=== PATIENT | female | born 1955 | race Caucasian/White ===

== ENCOUNTER → 2016-11-13 | Outpatient (CLI) | payer OTHER ==
[~2016-11-13] MED LIST: BUPIVACAINE 0.5% 30 ML (SENSORCAINE) VIAL ONE; LIDOCAINE 1% INJ 20 ML (XYLOCAINE) VIAL ONE
--- NOTE | 2016-11-13 08:26 | Diagnostic Imaging Report ---
Bilateral screening mammogram 2D views with tomosynthesis The current study was also evaluated with a Computer Aided Detection (CAD) system. Indication: Screening. No current complaints stated on the questionnaire. COMPARISON: 11/14/15. FINDINGS: The breasts are composed of heterogeneously dense parenchyma. Benign-appearing calcifications are seen. Allowing for technique and positional differences, no suspicious change is seen. IMPRESSION: Dense breasts with no definite change. ACR BI-RADS Category 2: Benign findings. Result letter will be mailed to the patient. Note: At least 10% of breast cancer is not imaged by mammography. Dictated by: Dictated on workstation # [id number]
== END ==
LOC: RAD 07:03
PROVIDERS: ATTEND Internal Medicine
DX: Z12.31 Encounter for screening mammogram for malignant neoplasm of breast (principal)
CPT/HCPCS: 77067

== ENCOUNTER → 2017-11-08 | Outpatient (CLI) | payer OTHER ==
--- NOTE | 2017-11-08 09:22 | Diagnostic Imaging Report ---
INDICATION: Routine screening. COMPARISON: 11/13/2016 and . TECHNIQUE: 2D and 3D bilateral screening mammography was performed with CAD. FINDINGS: Both breasts are heterogeneously dense, limiting the sensitivity of mammography. The parenchymal pattern is stable. No mass or malignant appearing microcalcifications are seen. There are benign calcifications. The axillae are unremarkable. IMPRESSION: No mammographic features suspicious for malignancy are identified. ACR BI-RADS Category 2: Benign findings. Result letter will be mailed to the patient. Note: At least 10% of breast cancer is not imaged by mammography. Dictated by: Dictated on workstation # [id number]
== END ==
LOC: RAD 08:08
PROVIDERS: ATTEND Internal Medicine
DX: Z12.31 Encounter for screening mammogram for malignant neoplasm of breast (principal)
CPT/HCPCS: 77067

== ENCOUNTER 2018-01-23 13:43 | Emergency (ER) | payer OTHER ==
[~2018-01-23] VITALS: Ht 177.8 cm; Wt 72.6 kg
--- OUTSIDE RECORDS SUMMARY | 2018-01-23 13:48 | XMS REPORT | Continuity of Care Document ---
Author Author [facility] Organization [facility] Address Unknown Phone Unavailable Allergies There is no data. Medications There is no data. Problems Date Dx Coded Attending Type Code Diagnosis Diagnosed By 11/18/2009 Ot 211.4 11/18/2009 Ot 789.09 11/13/2014 Ot V76.12 11/13/2014 Ot V76.12 11/13/2014 KALYAN CAMARGO, DAV Murphy Ot V76.12 11/13/2014 KALYAN CAMARGO, DAV Murphy Ot V76.12 01/25/2015 KALYAN CAMARGO, DAV Murphy Ot V76.12 04/19/2015 Ot V76.12 04/19/2015 Ot V76.12 04/19/2015 KALYAN CAMARGO, DAV Murphy Ot V76.12 04/19/2015 DAV BIGGS MD Ot V76.12 04/19/2015 KALYAN CAMARGO, DAV Murphy Ot V76.12 04/19/2015 Ot V76.12 04/19/2015 Ot V76.12 04/19/2015 KALYAN CAMARGO, DAV Murphy Ot V76.12 04/19/2015 KALYAN CAMARGO, DAV Murphy Ot V76.12 04/19/2015 KALYAN CAMARGO, DAV Murphy Ot V76.12 08/27/2015 KALYAN CAMARGO, DAV Murphy Ot V76.12 OTH SCREEN MAMMO-MALIGN NEOPLASM OF JUJU 08/27/2015 KALYAN CAMARGO, DAV Murphy Ot V76.12 OTH SCREEN MAMMO-MALIGN NEOPLASM OF JUJU 11/14/2015 Ot V76.12 OTH SCREEN MAMMO-MALIGN NEOPLASM OF JUJU 11/14/2015 Ot V76.12 OTH SCREEN MAMMO-MALIGN NEOPLASM OF JUJU 11/14/2015 KALYAN CAMARGO, DAV Murphy Ot V76.12 OTH SCREEN MAMMO-MALIGN NEOPLASM OF JUJU 11/14/2015 DAV BIGGS MD Ot V76.12 OTH SCREEN MAMMO-MALIGN NEOPLASM OF JUJU 11/14/2015 KALYAN CAMARGO, DAV Murphy Ot V76.12 OTH SCREEN MAMMO-MALIGN NEOPLASM OF JUJU 11/14/2015 DAV BIGGS MD Ot R09.89 OTH SYMPTOMS AND SIGNS INVOLVING THE CIR 11/15/2015 WES BECERRA MD Ot Z12.31 ENCNTR SCREEN MAMMOGRAM FOR MALIGNANT NE 11/20/2015 WES BECERRA MD Ot Z12.31 ENCNTR SCREEN MAMMOGRAM FOR MALIGNANT NE 11/13/2016 Ot V76.12 OTH SCREEN MAMMO-MALIGN NEOPLASM OF JUJU 11/13/2016 DAV BIGGS MD Ot V76.12 OTH SCREEN MAMMO-MALIGN NEOPLASM OF JUJU 11/13/2016 DAV BIGGS MD Ot V76.12 OTH SCREEN MAMMO-MALIGN NEOPLASM OF JUJU 11/13/2016 DAV BIGGS MD Ot V76.12 OTH SCREEN MAMMO-MALIGN NEOPLASM OF JUJU 11/13/2016 DAV BIGGS MD Ot R09.89 OTH SYMPTOMS AND SIGNS INVOLVING THE CIR 11/13/2016 WES BECERRA MD Ot Z12.31 ENCNTR SCREEN MAMMOGRAM FOR MALIGNANT NE 12/29/2016 WES BECERRA MD Ot Z12.31 ENCNTR SCREEN MAMMOGRAM FOR MALIGNANT NE 12/29/2016 WES BECERRA MD Ot Z12.31 ENCNTR SCREEN MAMMOGRAM FOR MALIGNANT NE 11/01/2017 WES BECERRA MD Ot Z12.31 ENCNTR SCREEN MAMMOGRAM FOR MALIGNANT NE 11/02/2017 DAV BIGGS MD Ot V76.12 OTH SCREEN MAMMO-MALIGN NEOPLASM OF JUJU 11/02/2017 DAV BIGGS MD Ot V76.12 OTH SCREEN MAMMO-MALIGN NEOPLASM OF JUJU 11/02/2017 DAV BIGGS MD Ot V76.12 OTH SCREEN MAMMO-MALIGN NEOPLASM OF JUJU 11/02/2017 DAV BIGGS MD Ot R09.89 OTH SYMPTOMS AND SIGNS INVOLVING THE CIR 11/02/2017 WES BECERRA MD Ot Z12.31 ENCNTR SCREEN MAMMOGRAM FOR MALIGNANT NE 11/02/2017 WES BECERRA MD, Ot Z12.31 ENCNTR SCREEN MAMMOGRAM FOR MALIGNANT NE Procedures There is no data. Results There is no data. Encounters ACCT No. Visit Date/Time Discharge Status Pt. Type Provider Facility Loc./Unit Complaint [id number] 10/20/2017 09:44:00 10/20/2017 23:59:59 CLS Preadmit WES BECERRA MD [facility] RAD SCREENING [id number] 11/13/2016 07:03:00 11/13/2016 23:59:59 CLS Outpatient WES BECERRA MD [facility] RAD SCREENING [id number] 11/14/2015 07:14:00 11/14/2015 23:59:59 CLS Outpatient WES BECERRA MD [facility] RAD SCREENING [id number] 04/19/2015 16:05:00 04/19/2015 23:59:59 CLS Outpatient DAV BIGGS MD [facility] RAD SINUS EAR CONGESTION [id number] 11/13/2014 10:36:00 11/13/2014 23:59:59 CLS Outpatient DAV BIGGS MD [facility] RAD SCREENING [id number] 11/06/2013 10:30:00 11/06/2013 23:59:59 CLS Outpatient DAV BIGGS MD [facility] RAD SCREENING [id number] 11/14/2012 09:30:00 11/14/2012 23:59:59 CLS Outpatient DAV BIGGS MD [facility] RAD SCREENING [id number] 01/23/2018 13:44:00 ACT Emergency CHELY CHAPPELL MD [facility] ER SVT [id number] 11/12/2011 07:23:00 Document Registration [id number] 11/10/2010 07:32:00 Document Registration [id number] 11/18/2009 06:20:00 Document Registration
[2018-01-23 13:57] LABS: BASOPHILS % (AUTO) 0 % (0-10); EOSINOPHILS % (AUTO) 0 % (0-10); HEMATOCRIT 44 % (35-52); LYMPHOCYTES # (AUTO) 1.7 X 10^3 (1.0-4.0); LYMPHOCYTES % (AUTO) 22 % (12-44); MEAN CORPUSCULAR HEMOGLOBIN 32 PG (25-34); MEAN CORPUSCULAR HGB CONC 34 G/DL (32-36); MEAN CORPUSCULAR VOLUME 95 FL (80-99); MEAN PLATELET VOLUME 10.4 FL (7.4-10.4); MONOCYTES # (AUTO) 0.7 X 10^3 (0.0-1.0); MONOCYTES % (AUTO) 10 % (0-12); NEUTROPHILS # (AUTO) 5.1 X 10^3 (1.8-7.8); NEUTROPHILS % (AUTO) 68 % (42-75); PLATELET COUNT 220 10^3/uL (130-400); RED BLOOD COUNT 4.66 10^6/uL (4.35-5.85); RED CELL DISTRIBUTION WIDTH 13.1 % (10.0-14.5); WHITE BLOOD COUNT 7.6 10^3/uL (4.3-11.0)
--- NOTE | 2018-01-23 13:58 | ED Cardiac General ---
History of Present Illness General Stated Complaint: SVT Source: patient, EMS, spouse Exam Limitations: no limitations History of Present Illness Date Seen by Provider: Jan 23, 2018 Time Seen by Provider: 13:44 Initial Comments Patient presents to ER by EMS with chief complaint feeling funny and some palpitations in her left neck. She had no nausea sweats chills fever cough chest pain or shortness of breath. EMS arrived and found her to be in SVT with a rate of 169 on 12-lead. They had her blow out on a syringe and using a vagal maneuvers she converted spontaneously. She has a history of hypertension but no other cardiac history. She does not smoke. She has no primary family history of coronary disease. She's been sick the last couple days with some diarrheal viral disease and she was getting a laundry out of the basement taking it upstairs going away when she started to feel this way. It started at 1305 and EMS was able to interrupt the SVT at approximately 1345. Allergies and Home Medications Allergies Coded Allergies: No Known Drug Allergies (Unverified , 01/23/18) Patient Home Medication List Home Medication List Reviewed: Yes Review of Systems Review of Systems Constitutional: No chills, No diaphoresis EENTM: No Blurred Vision, No Double Vision Respiratory: Denies Cough, Denies Shortness of Air Cardiovascular: Denies Chest Pain, Denies Edema, Denies Irregular Heart Rate, Denies Lightheadedness; Palpitations; Denies Syncope Gastrointestinal: Denies Abdomen Distended, Denies Abdominal Pain, Denies Blood Streaked Stools Genitourinary: Denies Burning, Denies Discharge Musculoskeletal: No back pain, No joint pain Skin: No pruritus, No rash Psychiatric/Neurological: Denies Headache, Denies Numbness Past Lecdldq-Fclzsw-Nfjoew Hx Patient Social History Alcohol Use: Rarely Uses Recreational Drug Use: No Smoking Status: Never a Smoker Recent Foreign Travel: No Contact w/Someone Who Travel: No Physical Exam Vital Signs Vital Signs - First Documented 01/23/18 13:43 Temp 98.0 Pulse 84 Resp 16 B/P (MAP) 125/81 (96) Pulse Ox 96 O2 Delivery Room Air Capillary Refill : Height, Weight, BMI Height: '" Weight: lbs. oz. kg; BMI Method: General Appearance: No Apparent Distress, WD/WN HEENT: PERRL/EOMI, Normal ENT Inspection, Pharynx Normal, Moist Mucous Membranes Neck: Full Range of Motion, Normal Inspection, Non Tender, Supple Respiratory: Chest Non Tender, Lungs Clear, Normal Breath Sounds, No Accessory Muscle Use, No Respiratory Distress Cardiovascular: Regular Rate, Rhythm, No Edema, No Murmur, Normal Peripheral Pulses Gastrointestinal: Normal Bowel Sounds, Non Tender, Soft Extremity: Normal Capillary Refill, Normal Inspection, No Pedal Edema Neurologic/Psychiatric: Alert, Oriented x3, No Motor/Sensory Deficits Skin: Normal Color, Warm/Dry Progress/Results/Core Measures Results/Orders Lab Results Laboratory Tests Test 01/23/18 13:45 Range/Units White Blood Count 7.6 4.3-11.0 10^3/uL Red Blood Count 4.66 4.35-5.85 10^6/uL Hemoglobin 15.0 11.5-16.0 G/DL Hematocrit 44 35-52 % Mean Corpuscular Volume 95 80-99 FL Mean Corpuscular Hemoglobin 32 25-34 PG Mean Corpuscular Hemoglobin Concent 34 32-36 G/DL Red Cell Distribution Width 13.1 10.0-14.5 % Platelet Count 220 130-400 10^3/uL Mean Platelet Volume 10.4 7.4-10.4 FL Neutrophils (%) (Auto) 68 42-75 % Lymphocytes (%) (Auto) 22 12-44 % Monocytes (%) (Auto) 10 0-12 % Eosinophils (%) (Auto) 0 0-10 % Basophils (%) (Auto) 0 0-10 % Neutrophils # (Auto) 5.1 1.8-7.8 X 10^3 Lymphocytes # (Auto) 1.7 1.0-4.0 X 10^3 Monocytes # (Auto) 0.7 0.0-1.0 X 10^3 Eosinophils # (Auto) 0.0 0.0-0.3 10^3/uL Basophils # (Auto) 0.0 0.0-0.1 10^3/uL Sodium Level 138 135-145 MMOL/L Potassium Level 3.7 3.6-5.0 MMOL/L Chloride Level 104 98-107 MMOL/L Carbon Dioxide Level 20 L 21-32 MMOL/L Anion Gap 14 5-14 MMOL/L Blood Urea Nitrogen 9 7-18 MG/DL Creatinine 0.84 0.60-1.30 MG/DL Estimat Glomerular Filtration Rate > 60 BUN/Creatinine Ratio 11 Glucose Level 160 H 70-105 MG/DL Calcium Level 9.2 8.5-10.1 MG/DL Corrected Calcium 9.0 8.5-10.1 MG/DL Magnesium Level 1.9 1.8-2.4 MG/DL Total Bilirubin 1.2 H 0.1-1.0 MG/DL Aspartate Amino Transf (AST/SGOT) 21 5-34 U/L Alanine Aminotransferase (ALT/SGPT) 15 0-55 U/L Alkaline Phosphatase 63 40-136 U/L Troponin I < 0.30 <0.30 NG/ML Total Protein 7.3 6.4-8.2 GM/DL Albumin 4.2 3.2-4.5 GM/DL Thyroid Stimulating Hormone (TSH) 1.01 0.35-4.94 UIU/ML My Orders Orders - CHELY CHAPPELL Troponin I (01/23/18 13:51) Chest 1 View, Ap/Pa Only (01/23/18 13:51) Ekg Tracing (01/23/18 13:51) Saline Lock/Iv-Start (01/23/18 13:51) Monitor-Rhythm Ecg Trace Only (01/23/18 13:51) Cbc With Automated Diff (01/23/18 13:51) Comprehensive Metabolic Panel (01/23/18 13:51) Magnesium (01/23/18 13:51) Thyroid Stimulating Hormone (01/23/18 13:51) Vital Signs/I&O 01/23/18 13:43 Temp 98.0 Pulse 84 Resp 16 B/P (MAP) 125/81 (96) Pulse Ox 96 O2 Delivery Room Air Progress Progress Note : Time: 13:56 Progress Note EKG shows no acute changes and a normal sinus rhythm right now. Put her on the monitor to some basic labs to include a troponin. Will make consultation with cardiology. Initial ECG Impression Date: Jan 23, 2018 Initial ECG Impression Time: 13:45 Initial ECG Rate: 82 Initial ECG Rhythm: Normal Sinus Initial ECG Intervals: Normal Initial ECG Impression: Normal Initial ECG Comparisson: No Previous ECG Available Comment No ST elevation or depression. 12-lead strip from EMS was reviewed showing a rate of 169 and SVT. Diagnostic Imaging Diagonstic Imaging: Xray Plain Films/CT/US/NM/MRI: chest (1v) Comments [facility]IA [facility]. [place], [place] NAME: CANDELARIA WADE [facility] REC#: [id number] PT STATUS: REG ER : 1955 PHYSICIAN: CHELY CHAPPELL MD ADMIT DATE: 01/23/18/ER Draft Date of Exam:01/23/18 CHEST 1 VIEW, AP/PA ONLY Indication: Palpitations COMPARISON: None available. Technique: Single frontal radiograph of the chest dated 01/23/2018. Findings: The cardiac silhouette is within normal limits in size. No significant pulmonary vascular congestion. The lungs are clear. No pleural effusion. No pneumothorax. No acute osseous abnormality. Impression: No acute cardiopulmonary abnormality. Dictated on workstation # [id number] Dict: 01/23/18 1425 Trans: 01/23/18 1428 [facility] [id number] Interpreted by: JEWEL MONAE MD Electronically signed by: Reviewed: Reviewed by Me Consults : Consulting Physician: Bib ANTON MD Consults Notes Discussed case lab imaging EKG with Dr. Anton and he says that if she is already converted spontaneously and we have a copy of the strip and looks like a true narrow complex SVT we could fax it over to his clinic and let her go home and follow-up tomorrow. Departure Impression Primary Impression: SVT (supraventricular tachycardia) Disposition: 01 HOME, SELF-CARE Condition: Stable Departure-Patient Inst. Decision time for Depature: 15:09 Referrals: WES BECERRA MD (PCP/Family) Primary Care Physician Bib ANTON MD Patient Instructions: Paroxysmal Supraventricular Tachycardia (DC) Add. Discharge Instructions: Tomorrow morning please call Dr. Anton at his clinic listed above. Make an appointment to be seen this week. If she had another episode of palpitations lightheadedness or near passing out you should call for help and attempt some of the vasovagal maneuvers you were taught by EMS. Copy Copies To 1: WES BECERRA MD; Bib ANTON MD, TITUS J Jan 23, 2018 13:58
[2018-01-23] MEDS ORDERED: VASOTEC (14:12)
[2018-01-23 14:14] LABS: ALANINE AMINOTRANSFERASE 15 U/L (0-55); ALBUMIN 4.2 GM/DL (3.2-4.5); ALKALINE PHOSPHATASE 63 U/L (40-136); BILIRUBIN,TOTAL 1.2 MG/DL (0.1-1.0); BUN/CREATININE RATIO 11; CALCIUM 9.2 MG/DL (8.5-10.1); CARBON DIOXIDE 20 MMOL/L (21-32); CHLORIDE 104 MMOL/L (98-107); CREATININE SERUM 0.84 MG/DL (0.60-1.30); GFR ESTIMATED > 60; GLUCOSE 160 MG/DL (70-105); MAGNESIUM 1.9 MG/DL (1.8-2.4); POTASSIUM 3.7 MMOL/L (3.6-5.0); SODIUM 138 MMOL/L (135-145); TOTAL PROTEIN 7.3 GM/DL (6.4-8.2)
--- NOTE | 2018-01-23 14:28 | Diagnostic Imaging Report ---
Indication: Palpitations COMPARISON: None available. Technique: Single frontal radiograph of the chest dated 01/23/2018. Findings: The cardiac silhouette is within normal limits in size. No significant pulmonary vascular congestion. The lungs are clear. No pleural effusion. No pneumothorax. No acute osseous abnormality. Impression: No acute cardiopulmonary abnormality. Dictated by: Dictated on workstation # [id number]
[2018-01-23 15:19] VITALS: BP 126/79
== END 2018-01-23 15:19 | disposition home or self-care (01) ==
LOC: EDUNIT# 13:43 → ER 13:44
DX: I47.1 Supraventricular tachycardia (principal); I10 Essential (primary) hypertension
CPT/HCPCS: 36415; 71045; 80053; 83735; 84443; 84484; 85025; 93041

== ENCOUNTER → 2018-03-03 | Outpatient (CLI) | payer OTHER ==
[~2018-03-03] MED LIST changes: -BUPIVACAINE 0.5% 30 ML (SENSORCAINE) VIAL ONE; -LIDOCAINE 1% INJ 20 ML (XYLOCAINE) VIAL ONE; +VASOTEC
== END ==
LOC: CARD 13:59
PROVIDERS: ATTEND Internal Medicine Interventional Cardiology
DX: I11.9 Hypertensive heart disease without heart failure (principal); I47.1 Supraventricular tachycardia; I34.0 Nonrheumatic mitral (valve) insufficiency
CPT/HCPCS: 93306

== ENCOUNTER → 2018-11-10 | Outpatient (CLI) | payer OTHER ==
--- NOTE | 2018-11-10 18:56 | Diagnostic Imaging Report ---
INDICATION: Routine screening. COMPARISON: Comparison is made with prior mammogram from 11/08/2017 and 11/13/2016. 2-D and 3-D bilateral screening mammography was performed. The current study was also evaluated with a Computer Aided Detection (CAD) system. 3-D tomosynthesis was also performed and reviewed. FINDINGS: Scattered fibroglandular densities are identified bilaterally. The parenchymal pattern is stable. No mass or malignant-appearing microcalcifications are seen. The axillae are unremarkable. IMPRESSION: No mammographic features suspicious for malignancy are identified. ACR BI-RADS Category 1: Negative. Result letter will be mailed to the patient. Note: At least 10% of breast cancer is not imaged by mammography. Dictated by: Dictated on workstation # [id number]
== END ==
LOC: RAD 07:19
PROVIDERS: ATTEND Internal Medicine
DX: Z12.31 Encounter for screening mammogram for malignant neoplasm of breast (principal)
CPT/HCPCS: 77067

== ENCOUNTER → 2019-11-21 | Outpatient (CLI) | payer OTHER ==
--- NOTE | 2019-11-21 12:57 | Diagnostic Imaging Report ---
INDICATION: Routine screening. COMPARISON: 11/10/2018 and 11/08/2017. TECHNIQUE: 2D and 3D bilateral screening mammography was performed with CAD. FINDINGS: Scattered fibroglandular densities are identified bilaterally. The parenchymal pattern is stable. No mass or malignant appearing microcalcifications are seen. There are benign calcifications. The axillae are unremarkable. IMPRESSION: No mammographic features suspicious for malignancy are identified. ACR BI-RADS Category 2: Benign findings. Result letter will be mailed to the patient. Note: At least 10% of breast cancer is not imaged by mammography. Dictated by: Dictated on workstation # [id number]
== END ==
LOC: RAD 08:12
PROVIDERS: ATTEND Internal Medicine
DX: Z12.31 Encounter for screening mammogram for malignant neoplasm of breast (principal)
CPT/HCPCS: 77063; 77067

== ENCOUNTER 2020-10-10 06:36 | Outpatient (CLI) | payer OTHER ==
[~2020-10-10] VITALS: Ht 177.8 cm; Wt 77.2 kg
[2020-10-10] MEDS ORDERED: ESTR10TA9 PO (11:50)
[2020-10-10] MEDS ORDERED: ENAL20TA16 PO (11:50)
[2020-10-10] MEDS ORDERED: MULT-1136 PO (11:50)
== END 2020-10-10 12:30 | disposition home or self-care (01) ==
LOC: PREOP 06:36
PROVIDERS: ATTEND Internal Medicine
DX: Z01.818 Encounter for other preprocedural examination (principal)

== ENCOUNTER 2020-10-18 08:00 | Day surgery (SDC) | payer OTHER ==
--- NOTE | 2020-10-10 06:19 | HISTORY AND PHYSICAL ---
DATE OF SERVICE: HISTORY OF PRESENT ILLNESS: The patient is a 65 year-old white female seen in the office for followup of hypertension. It had been a little over 11 years since her last colonoscopy that was unremarkable, so she is being set up for surveillance colonoscopy. She reports that she has been feeling well. Voiced no complaints. No difficulty with antihypertensive medication. She has no known history for vascular disease. She denies bowel habit change, melena or bright red blood per rectum with no significant change in weight. There is no known family history for colon cancer. PHYSICAL EXAMINATION: GENERAL: Reveals a white female, appears to be in no acute distress. VITAL SIGNS: Weight 171 pounds, blood pressure 140/80. HEENT: Unremarkable. Sclerae nonicteric. CHEST: Clear to auscultation. CARDIOVASCULAR: Reveals a regular rate and rhythm without murmur, S3 or S4. ABDOMEN: Soft, supple without mass, organomegaly or tenderness. EXTREMITIES: Reveal no cyanosis, clubbing or edema. ASSESSMENT AND PLAN: 1. Hypertension, under reasonable control. 2. The patient is being set up for screening colonoscopy on 10/18/2020. Prep instructions with Suprep kit were given and questions were answered. Job ID: [id number] DocumentID: [id number] Dictated Date: 10/02/2020 18:28:16 Drainage Inspector Date: 10/02/2020 18:43:53 Dictated By: WES BECERRA MD [facility]
[~2020-10-18] VITALS: Ht 178 cm; Wt 77.0 kg
[~2020-10-18 08:00] MED LIST changes: +ENAL20TA16 PO; +ESTR10TA9 PO; +MULT-1136 PO
[2020-10-18] MEDS ORDERED: LACTATED RINGERS 1,000 ML IV STA (08:01)
[2020-10-18] MEDS ORDERED: LACTATED RINGERS 1,000 ML IV ONE (08:02)
[2020-10-18] MEDS ORDERED: LIDOCAINE JELLY 2% 6 ML SYRINGE MM PRN (08:15)
[2020-10-18 08:19] VITALS: BP 147/81
--- NOTE | 2020-10-18 08:49 | Pre-Op Note & Conscious Sedat ---
Pre-Operative Progress Note H&P Reviewed The H&P was reviewed, patient examined and no changes noted. Date H&P Reviewed: Oct 18, 2020 Time H&P Reviewed: 08:49 Conscious Sedation Pre-Proced ASA Score 2 For ASA 3 and 4: Consider anesthesia and medical clearance. Also, for patients with a history of failed moderate sedation consider anesthesia. Airway Lungs Heart ASA score ASA 1: a normal healthy patient ASA 2: a patient with a mild systemic disease (mid diabetes, controlled hypertension, obesity ASA 3: a patient with a severe systemic disease that limits activity (angina, COPD, prior Myocardial infarction) ASA 4: a patient with an incapacitating disease that is a constant threat to life (CHF, renal failure) ASA 5: a moribund patient not expected to survive 24 hrs. (ruptured aneurysm) ASA 6: a declared brain- patient whose organs are being harvested. For emergent operations, add the letter E after the classification Mallampati Classification Grade 1 Sedation Plan Analgesia, Amnesia, Plan communicated to team members, Discussed options with patient/fam, Discussed risks with patient/fam The patient is an appropriate candidate to undergo the planned procedure, sedation, and anesthesia. The patient immediately re-assessed prior to indication. WES BECERRA MD Oct 18, 2020 08:49
[2020-10-18] MEDS ORDERED: PROPOFOL INJECTION 50 ML IV ONE (09:28)
[2020-10-18 10:00] VITALS: BP 90/53
[2020-10-18 10:05] VITALS: BP 94/52
[2020-10-18 10:10] VITALS: BP 94/52
[2020-10-18 10:29] VITALS: BP 100/60
--- NOTE | 2020-10-18 10:40 | Anesthesia-General Post-Op ---
MAC Patient Condition Mental Status/LOC: Same as Preop Cardiovascular: Satisfactory Nausea/Vomiting: Absent Respiratory: Satisfactory Pain: Controlled Complications: Absent Post Op Complications Complications None Follow Up Care/Instructions Patient Instructions None needed. Anesthesiology Discharge Order Discharge Order Patient is doing well, no complaints, stable vital signs, no apparent adverse anesthesia problems. No complications reported per nursing. CRISTIANA AMBROSE CRNA Oct 18, 2020 10:40
--- NOTE | 2020-10-18 14:39 | OPERATIVE REPORT ---
DATE OF SERVICE: COLONOSCOPY SUMMARY INDICATION FOR THE PROCEDURE: Screening colonoscopy. DESCRIPTION OF PROCEDURE: The patient was placed in the left lateral decubitus position. Prior to undergoing colonoscopy, digital rectal evaluation was performed. Anal sphincter tone was normal and the perianal reflexes intact. No abnormalities were noted on digital inspection of anal canal or distal rectal vault. The colonoscope was then inserted into the rectum under direct visualization, advanced to cecum. The cecum was identified by identification of ileocecal valve and cecal strap. Photographic documentation was obtained. Quality of the prep was fair. FINDINGS: There was no evidence for internal or external hemorrhoids and the rectum was unremarkable. One small hyperplastic appearing 3 mm sessile polyp was noted in the distal sigmoid colon. It was removed via cold forceps with no blood loss. The remainder of the sigmoid colon, descending colon, splenic flexure, transverse colon, hepatic flexure, ascending colon and cecum were unremarkable. ASSESSMENT: One diminutive hyperplastic polyp was removed from the distal sigmoid colon with otherwise normal colonoscopy to the cecum. We would advocate consideration for repeat screening colonoscopy in 10 years. Job ID: [id number] DocumentID: [id number] Dictated Date: 10/18/2020 10:07:29 Inspector Chief Date: 10/18/2020 14:39:41 Dictated By: WES BECERRA MD
== END 2020-10-18 10:35 | disposition home or self-care (01) ==
LOC: ENDO 08:00
PROVIDERS: ATTEND Internal Medicine
DX: Z12.11 Encounter for screening for malignant neoplasm of colon (principal); K63.5 Polyp of colon; I10 Essential (primary) hypertension; Z79.899 Other long term (current) drug therapy
CPT/HCPCS: 88305

== ENCOUNTER → 2020-11-12 | Outpatient (CLI) | payer OTHER ==
--- NOTE | 2020-11-12 14:21 | Diagnostic Imaging Report ---
INDICATION: Routine screening. COMPARISON: 11/21/2019 and 11/10/2018. TECHNIQUE: 2D and 3D bilateral screening mammography was performed with CAD. FINDINGS: Scattered fibroglandular densities are identified bilaterally. The parenchymal pattern is stable. No mass or malignant-appearing microcalcifications are seen. There are benign calcifications. The axillae are unremarkable. IMPRESSION: No mammographic features suspicious for malignancy are identified. ACR BI-RADS Category 2: Benign findings. Result letter will be mailed to the patient. Note: At least 10% of breast cancer is not imaged by mammography. Dictated by: Dictated on workstation # [id number]
== END ==
LOC: RAD 07:30
PROVIDERS: ATTEND Internal Medicine
DX: Z12.31 Encounter for screening mammogram for malignant neoplasm of breast (principal)
CPT/HCPCS: 77063; 77067

== ENCOUNTER → 2021-11-03 | Outpatient (CLI) | payer OTHER ==
--- NOTE | 2021-11-03 09:27 | Diagnostic Imaging Report ---
INDICATION: Routine screening. Comparison is made with prior mammogram from 11/12/2020 and 04/22/2019. 2-D and 3-D bilateral screening mammography was performed with CAD. Both breasts are heterogeneously dense, limiting the sensitivity of mammography. The parenchymal pattern is stable. No mass or malignant-appearing microcalcifications are seen. There is benign calcification on the left. Axillae are unremarkable. IMPRESSION: No mammographic features suspicious for malignancy are identified. ACR BI-RADS Category 2: Benign findings. Result letter will be mailed to the patient. Note: At least 10% of breast cancer is not imaged by mammography. BI-RADS Category 2 Dictated by: Dictated on workstation # [id number]
== END ==
LOC: RAD 07:30
PROVIDERS: ATTEND Internal Medicine
DX: Z12.31 Encounter for screening mammogram for malignant neoplasm of breast (principal)
CPT/HCPCS: 77063; 77067

== ENCOUNTER → 2022-11-04 | Outpatient (CLI) | payer OTHER ==
[~2022-11-04] MED LIST changes: +ENAL-70 PO; -ENAL20TA16 PO
--- NOTE | 2022-11-04 11:07 | Diagnostic Imaging Report ---
Indication: Routine screening. Comparison is made with prior mammogram 11/03/2021 and 11/12/2020. 2-D and 3-D bilateral screening mammography was performed with CAD. The current study was also evaluated with a Computer Aided Detection (CAD) system. Both breasts are heterogeneously dense, limiting the sensitivity of mammography. The parenchymal pattern is stable. No mass or malignant-appearing microcalcifications are seen. There are benign calcifications bilaterally. Axillae are unremarkable. IMPRESSION: BI-RADS Category 2 No mammographic features suspicious for malignancy are identified. ACR BI-RADS Category 2: Benign findings. Result letter will be mailed to the patient. Note: At least 10% of breast cancer is not imaged by mammography. Dictated by: Dictated on workstation # [id number]
== END ==
LOC: RAD 07:29
PROVIDERS: ATTEND Internal Medicine
DX: Z12.31 Encounter for screening mammogram for malignant neoplasm of breast (principal)
CPT/HCPCS: 77063; 77067

== ENCOUNTER 2023-02-09 05:13 | Emergency (ER) | payer OTHER ==
[~2023-02-09] VITALS: Ht 178 cm; Wt 77.0 kg
--- NOTE | 2023-02-09 05:37 | ED Cardiac General ---
History of Present Illness General Chief Complaint: Cardiac/General Problems Stated Complaint: CLAMMY,IRREGULAR HRT BEAT Nursing Triage Note: PALPITATIONS, CLAMMY SINCE 429 Source: patient Exam Limitations: no limitations (SAROJ LUCAS MD) Source: old records (WENDIE POON MD) History of Present Illness Date Seen by Provider: Feb 09, 2023 Time Seen by Provider: 05:18 Initial Comments Patient is a 67-year-old female with a history of hypertension who presents to the emergency department with a chief complaint of feeling her heart beating irregularly and feeling clammy this morning. Patient states that she normally wakes up about 430, she got up to go to the bathroom and noticed that she was getting back into bed that her heart seemed to be jumping around. She states she just felt a little sweaty. This lasted for 20 minutes although the irregularity in the heartbeat is persisting (but improved). She has had history of similar symptoms in the past, 4 years ago. She did not have cardiac follow-up after being in the emergency room. No diagnosis of A-fib. She denies chest pain or discomfort. She denies nausea, shortness of breath. She is not and has not ever been a smoker. No recent illnesses. She did get a COVID booster last week. No problems with bowel or bladder, dysuria or diarrhea. No recent travel. No calf pain or leg swelling. No unintentional weight loss. No history of thyroid problems. She thinks she may have gotten an echocardiogram several years ago but no known cardiac pathology. She only drinks 1 cup of coffee a day except on the weekends she might have two. She works as a teacher. Timing/Duration: 1 hour Severity: moderate Activities at Onset: other (getting up to go to the bathroom) NTG SL CARTON GLUING MACHINE OPERATOR: No ASA po CARTON GLUING MACHINE OPERATOR: No Associated Systoms: Other ("clammy") (SAROJ LUCAS MD) Allergies and Home Medications Allergies Coded Allergies: No Known Drug Allergies (Unverified , 01/23/18) Patient Home Medication List Home Medication List Reviewed: Yes (SAROJ LUCAS MD) Enalapril Maleate (Enalapril Maleate) 20 Mg Tablet, 20 MG PO DAILY, (Reported) Entered as Reported by: CHRISTOPHER NICE on 10/10/20 1150 Estradiol (Estradiol) 10 Mcg Tablet, 0.05 MG PO DAILY, (Reported) Entered as Reported by: CHRISTOPHER NICE on 10/10/20 115 Multivitamin (Multivitamin) 1 Each Tablet, 1 EACH PO DAILY, (Reported) Entered as Reported by: CHRISTOPHER NICE on 10/10/20 1150 Review of Systems Review of Systems Constitutional: see HPI Respiratory: No Symptoms Reported Cardiovascular: Palpitations Gastrointestinal: No Symptoms Reported Genitourinary: No Symptoms Reported Skin: no symptoms reported Psychiatric/Neurological: No Symptoms Reported Endocrine: Other ("clammy") (SAROJ LUCAS MD) Past Ipbgyxa-Obxxen-Stxiwy Hx Patient Social History Tobacco Use?: No Substance use?: No Alcohol Use?: No Pt feels they are or have been: No (SAROJ LUCAS MD) Immunizations Up To Date First/Initial COVID19 Vaccinat: YES Second COVID19 Vaccination Josue: YES Third COVID19 Vaccination Date: YES (SAROJ LUCAS MD) Seasonal Allergies Seasonal Allergies: No (SAROJ LUCAS MD) Past Medical History Surgery/Hospitalization HX: HTN, SVT Surgeries: Yes Hysterectomy, Tonsillectomy Respiratory: No Cardiac: Yes Hypertension DATABASE PROGRAMMER History: Hysterectomy Genitourinary: No Gastrointestinal: No Musculoskeletal: No Endocrine: No HEENT: No (WEARS CONTACTS) Hearing Impairment: Denies Cancer: No Psychosocial: No Integumentary: No Blood Disorders: No Adverse Reaction/Blood Tranf: No (SAROJ LUCAS MD) Physical Exam Vital Signs Vital Signs - First Documented 02/09/23 05:17 Temp 36.6 Pulse 72 Resp 12 B/P (MAP) 157/86 (109) Pulse Ox 97 O2 Delivery Room Air (WENDIE POON MD) Vital Signs Capillary Refill : Less Than 3 Seconds (SAROJ LUCAS MD) Height, Weight, BMI Height: 5'10.00" Weight: 160lbs. oz. 72.310113tt; 24.00 BMI Method:Stated General Appearance: No Apparent Distress, Thin HEENT: PERRL/EOMI Neck: Normal Inspection, Non Tender Respiratory: Lungs Clear, Normal Breath Sounds, No Accessory Muscle Use, No Respiratory Distress Cardiovascular: Regular Rate, Rhythm (60's), Normal Peripheral Pulses Gastrointestinal: Soft Extremity: Normal Capillary Refill, Normal Inspection, Normal Range of Motion, No Pedal Edema Neurologic/Psychiatric: Alert, Oriented x3, No Motor/Sensory Deficits, Normal Mood/Affect, aquatic ecologist II-XII Norm as Tested Skin: Normal Color, Warm/Dry (SAROJ LUCAS MD) General Appearance: No Apparent Distress (WENDIE POON MD) Progress/Results/Core Measures Results/Orders Lab Results Laboratory Tests Test 02/09/23 05:32 02/09/23 06:03 Range/Units White Blood Count 5.6 4.3-11.0 10^3/uL Red Blood Count 4.43 3.80-5.11 10^6/uL Hemoglobin 14.2 11.5-16.0 g/dL Hematocrit 43 35-52 % Mean Corpuscular Volume 98 80-99 fL Mean Corpuscular Hemoglobin 32 25-34 pg Mean Corpuscular Hemoglobin Concent 33 32-36 g/dL Red Cell Distribution Width 12.8 10.0-14.5 % Platelet Count 225 130-400 10^3/uL Mean Platelet Volume 10.6 9.0-12.2 fL Immature Granulocyte % (Auto) 0 % Neutrophils (%) (Auto) 43 42-75 % Lymphocytes (%) (Auto) 43 12-44 % Monocytes (%) (Auto) 9 0-12 % Eosinophils (%) (Auto) 4 0-10 % Basophils (%) (Auto) 1 0-10 % Neutrophils # (Auto) 2.4 1.8-7.8 10^3/uL Lymphocytes # (Auto) 2.4 1.0-4.0 10^3/uL Monocytes # (Auto) 0.5 0.0-1.0 10^3/uL Eosinophils # (Auto) 0.2 0.0-0.3 10^3/uL Basophils # (Auto) 0.0 0.0-0.1 10^3/uL Immature Granulocyte # (Auto) 0.0 0.0-0.1 10^3/uL Sodium Level 140 135-145 MMOL/L Potassium Level 3.7 3.6-5.0 MMOL/L Chloride Level 107 98-107 MMOL/L Carbon Dioxide Level 25 21-32 MMOL/L Anion Gap 8 5-14 MMOL/L Blood Urea Nitrogen 11 7-18 MG/DL Creatinine 0.80 0.60-1.30 MG/DL Estimat Glomerular Filtration Rate 81 BUN/Creatinine Ratio 14 Glucose Level 102 70-105 MG/DL Calcium Level 9.2 8.5-10.1 MG/DL Corrected Calcium 9.3 8.5-10.1 MG/DL Total Bilirubin 0.7 0.1-1.0 MG/DL Aspartate Amino Transf (AST/SGOT) 20 5-34 U/L Alanine Aminotransferase (ALT/SGPT) 15 0-55 U/L Alkaline Phosphatase 69 40-136 U/L Total Protein 7.2 6.4-8.2 GM/DL Albumin 3.9 3.2-4.5 GM/DL Magnesium Level 2.0 1.6-2.4 MG/DL (WENDIE POON MD) My Orders Orders - WENDIE POON MD Magnesium (02/09/23 06:02) (WENDIE POON MD) Vital Signs/I&O 02/09/23 02/09/23 05:17 06:15 Temp 36.6 Pulse 72 91 Resp 12 16 B/P (MAP) 157/86 (109) 163/98 (119) Pulse Ox 97 99 O2 Delivery Room Air Room Air (WENDIE POON MD) Blood Pressure Mean: 109 Progress Progress Note : Time: 07:02 Progress Note I assumed care of this patient from Dr. Lucas at shift change. All labs have been reviewed and interpreted by me. CBC, CMP, and magnesium were all normal. 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 Patient confirms in real-time that these premature beats are the palpitations that she has been experiencing. We have discussed follow-up. Since she did have an abnormal echocardiogram in 2018 (reviewed by me in the chart) demonstrating wall thickening and diastolic failure, I have suggested that she return to a disintegrator. She is to contact Dr. Cobos's office for a referral. She was advised that physiologic stressors such as her recent COVID vaccination can trigger more frequent premature beats. EKG was interpreted by Dr. Lucas as noted below. See discharge instructions for further discussion. (WENDIE POON MD) Initial ECG Impression Date: Feb 09, 2023 Initial ECG Impression Time: 05:31 Initial ECG Rate: 73 Initial ECG Rhythm: Normal Sinus Initial ECG Intervals: Normal Initial ECG Impression: Normal (SAROJ LUCAS MD) Departure Impression Primary Impression: PAC (premature atrial contraction) Additional Impressions: Palpitations History of diastolic dysfunction Disposition: 01 HOME, SELF-CARE Condition: Stable Departure-Patient Inst. Decision time for Depature: 07:07 (WENDIE POON MD) Referrals: WES COBOS MD (PCP/Family) Primary Care Physician Patient Instructions: Palpitations (DC) Add. Discharge Instructions: Follow-up with Dr. Cobos by phone today and request a cardiology referral. Your palpitations seem to be related to PACs (premature atrial contractions). These are heartbeats that occur prematurely and are sometimes felt by the patient. Because you had a abnormal echocardiogram in 2018, I suggest Dr. Cobos refer you to a disintegrator for further evaluation. The exact cause of your premature beats is uncertain at this time. Premature beats can occur more often when the body is under physiologic stress. Your COVID-19 vaccination may have been a contributing factor. Avoid unnecessary stimulants such as caffeine, decongestant medications, energy drinks, diet pills, workout supplements, etc. as they may also worsen premature beats. Return to the emergency room if you have worsening symptoms despite following these instructions or if you develop additional symptoms such as shortness of breath, chest pain, lightheadedness, etc. Bring these discharge instructions with you to follow-up. You may also read these discharge instructions to the doctor's office over the phone if they have questions about your need for follow-up. All discharge instructions reviewed with patient and/or family. Voiced understanding. Copy Copies To 1: WES COBOS MD, KATHRYN M MD Feb 09, 2023 05:37 WENDIE POON MD Feb 09, 2023 06:52
[2023-02-09 05:58] LABS: BASOPHILS % (AUTO) 1 % (0-10); EOSINOPHILS # (AUTO) 0.2 10^3/uL (0.0-0.3); EOSINOPHILS % (AUTO) 4 % (0-10); HEMATOCRIT 43 % (35-52); HEMOGLOBIN 14.2 g/dL (11.5-16.0); LYMPHOCYTES # (AUTO) 2.4 10^3/uL (1.0-4.0); LYMPHOCYTES % (AUTO) 43 % (12-44); MEAN CORPUSCULAR HEMOGLOBIN 32 pg (25-34); MEAN CORPUSCULAR HGB CONC 33 g/dL (32-36); MEAN CORPUSCULAR VOLUME 98 fL (80-99); MEAN PLATELET VOLUME 10.6 fL (9.0-12.2); MONOCYTES # (AUTO) 0.5 10^3/uL (0.0-1.0); MONOCYTES % (AUTO) 9 % (0-12); NEUTROPHILS # (AUTO) 2.4 10^3/uL (1.8-7.8); NEUTROPHILS % (AUTO) 43 % (42-75); PLATELET COUNT 225 10^3/uL (130-400); WHITE BLOOD COUNT 5.6 10^3/uL (4.3-11.0)
[2023-02-09 06:11] LABS: ALBUMIN 3.9 GM/DL (3.2-4.5); POTASSIUM 3.7 MMOL/L (3.6-5.0)
[2023-02-09 06:13] LABS: CALCIUM 9.2 MG/DL (8.5-10.1)
[2023-02-09 06:14] LABS: TOTAL PROTEIN 7.2 GM/DL (6.4-8.2)
[2023-02-09 06:16] LABS: BILIRUBIN,TOTAL 0.7 MG/DL (0.1-1.0)
[2023-02-09 06:17] LABS: CREATININE SERUM 0.8 MG/DL (0.60-1.30)
[2023-02-09 07:18] VITALS: BP 123/84
== END 2023-02-09 07:18 | disposition home or self-care (01) ==
LOC: EDUNIT# 05:13 → ER 05:15
DX: I49.1 Atrial premature depolarization (principal); Z86.79 Personal history of other diseases of the circulatory system
CPT/HCPCS: 36415; 80053; 83735; 85025; 93005; 93041